=== PATIENT | male | born 1965 | race Caucasian/White ===

== ENCOUNTER 2018-06-18 15:24 | Inpatient (IN) | payer OTHER ==
[2018-06-18] MEDS ORDERED: NACL 0.9% 1000 ML 1,000 ML ONE (15:34)
[2018-06-18] MEDS ORDERED: NACL 0.9% 1000 ML 1,000 ML IV ONE ×2 (15:39)
[2018-06-18] MEDS ORDERED: HumuLIN R IV ONE (15:39)
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
[2018-06-18 16:04] LABS: Basophils % (Auto) 0.3 % (0.0-1.8); Eosinophils % (Auto) 0.1 % (0.0-4.3); Lymphocytes # (Auto) 1.4 K/mm3 (1.2-5.4); Lymphocytes % (Auto) 9.8 % (13.4-35.0); Mean Corpuscular HGB Conc 31 % (32-34); Mean Corpuscular Volume 98 fl (84-94); Monocytes # (Auto) 0.8 K/mm3 (0.0-0.8); Monocytes % (Auto) 5.4 % (0.0-7.3); Platelet Count 133 K/mm3 (140-440); Red Cell Distribution Width 15.5 % (13.2-15.2)
[2018-06-18 16:16] LABS: Hemoglobin 17.4 gm/dl (11.8-15.2)
[2018-06-18 16:18] LABS: Calcium 9.5 mg/dL (8.4-10.2)
[2018-06-18 16:31] LABS: Alanine Aminotransferase 50 units/L (7-56); Albumin 4.8 g/dL (3.9-5)
[2018-06-18 16:34] LABS: Bilirubin,Direct < 0.2 mg/dL (0-0.2)
[2018-06-18] MEDS ORDERED: D50W (25GM) Syringe IV PRN ×2 (16:35→20:55)
[2018-06-18] MEDS ORDERED: HumuLIN R 100 UNITS in NACL 0.9% 99 ML IV SCH (17:00)
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
[2018-06-18 17:30] LABS: Calcium 8.5 mg/dL (8.4-10.2)
[2018-06-18 18:03] LABS: Bilirubin,Urine NEG (Negative); Blood,Urine NEG (Negative); Color,Urine Straw (Yellow); Mucus,Urine FEW /HPF; Protein,Urine <15 mg/dL mg/dL (Negative); Urobilinogen,Urine < 2.0 mg/dL (<2.0)
[2018-06-18] MEDS ORDERED: NACL 0.45% 1000 ML 1,000 ML IV SCH (20:00)
[2018-06-18] MEDS ORDERED: D5W/0.45% NACL/KCL 20 MEQ 20 MEQ/1,000 ML BAG IV SCH (21:00)
[2018-06-18] MEDS ORDERED: KCL 10MEQ/100ML 10 MEQ/100 ML BAG IV PRN (21:00)
[2018-06-18] MEDS ORDERED: LOVENOX SUB-Q SCH (21:00)
--- NOTE | 2018-06-18 21:11 | History and Physical Report ---
History of Present Illness Date of examination: 06/18/18 Date of admission: Diabetic Ketoacidosis Chief complaint: Polyurea, polydypsia and polyphagia with fatigue History of present illness: Patient is a 53 year old gentleman who has a history of hypertension who was seen in my office about 6 weeks ago for atopic dermatitis. Was commenced on prednisone after topical steroids was not effective. Today patient presents with progressive worsening polyuria, polydipsia, polyphagia, weight loss and fatigue. Patient had seen me in the office in about 3 months ago with pressure was 130. He was advised to return for further evaluation. However he did not return because of high insurance deductible. His present symptoms started about 2 weeks ago and progressively got worse. She came into my office today. In the office blood pressure was found to be extremely high inguinal direct in the glucometer. He was fatigued. Denies any fever or chills. No chest pain or shortness of breath or PND. No abdomen pain, nausea or vomiting. Patient was therefore admitted to the emergency department. The patient was found to be 1084. BUN was 58 and creatinine was 2.3. Venous pH was 7.9. Potassium and phosphorus levels where normal. Bicarbonate was normal at 24. Anion gap was unremarkable. Patient was commenced on normal saline and insulin drips. Inp atient admission was requested. Past History Past Medical History: hypertension Social history: smoking, alcohol abuse Family history: diabetes Medications and Allergies Allergies Allergy/AdvReac Type Severity Reaction Status Date / Time No Known Allergies Allergy Verified 06/18/18 15:33 Home Medications Medication Instructions Recorded Confirmed Last Taken Type Atenolol [Tenormin] 50 mg PO DAILY 06/18/18 06/18/18 Unknown History Atorvastatin [Lipitor Tab] 80 mg PO QHS 06/18/18 06/18/18 Unknown History clonazePAM [Clonazepam] 0.5 mg PO BID 06/18/18 06/18/18 Unknown History Active Meds: Active Medications Atenolol (Tenormin) 50 mg PO DAILY [facility] Clonazepam (Klonopin) 0.5 mg PO BID [facility] Dextrose (D50w (25gm) Syringe) 0 ml IV PRN PRN PRN Reason: Hypoglycemia Dextrose (D50w (25gm) Syringe) 0 ml IV PRN PRN PRN Reason: Hypoglycemia Enoxaparin Sodium (Lovenox) 30 mg SUB-Q QDAY [facility] Insulin Human Regular 100 (units/ Sodium Chloride) 100 mls @ 1 mls/hr IV TITR [facility]; Protocol Last Titration: 06/18/18 20:56 Dose: 7 units/hr, 7 mls/hr Documented by: Sodium Chloride (Nacl 0.45% 1000 Ml) 1,000 mls @ 150 mls/hr IV DIRECT [facility] Last Admin: 06/18/18 19:57 Dose: 150 mls/hr Documented by: Potassium Chloride/Dextrose/Sod Cl (D5w/0.45% Nacl/Kcl 20 Meq) 20 meq in 1,000 mls @ 125 mls/hr IV DIRECT [facility] Potassium Chloride (Kcl 10meq/100ml) 10 meq in 100 mls @ 100 mls/hr IV Q1H [facility] Stop: 06/19/18 00:59 Insulin Human Regular 100 (units/ Sodium Chloride) 100 mls @ 1 mls/hr IV TITR [facility]; Protocol Miscellaneous Medication (Atorvastatin [Lipitor]) 80 mg PO QHS [facility] Review of systems Constitutional: Well Nourished and Well developed. Fatigued Head: NC/ AT Eyes: Denies any visual impairments. No discharge from the eyes Nose: Denies any rhinorrhea or epistaxis Throats: Denies any post nasal drainage. Ears: Denies any hearing deficits Cardiovascular system: Denies any chest pain, shortness of breath, orthopnea, paroxysmal nocturnal dyspnea, or palpitation. Respiratory system: Denies any cough, difficulty breathing, wheezing, pleuritic chest pain, Gastrointestinal system: Denies any abdominal pain, nausea vomiting, hematemesis or melena. Neurological system: Denies any headache, slurred speech, facial droop, lateralizing weakness Genitalia system: Denies any dysuria, urinary frequency or urgency, urethral discharge Skin: No rashes, hyperpigmented spots. Hematological: Denies any cervical tenderness hemorrhages or petechia. Immunological: Denies any multiple septic spots, Lymphatic: Denies any generalized lymphadenopathy. Endocrine: Denies any polyuria, polydipsia, polyphagia. No heat or cold intolerance. Musculoskeletal system: No joint pain or swelling. Psych: No visual, tactile, auditory or hallucination Exam - Physical Exam Narrative exam: Constitutional: Well-nourished well-developed. In no distress Head: Normocephalic atraumatic Eyes: Pupils are equal round and reactive to light Nose: No enlarged turbinates, no septal deviation. Mouth: Dry mucous membranes. Neck: Supple no thyromegaly. No bruit. No JVD Heart: Regular rate and rhythm, S1-S2 normal. No rubs murmurs or gallop Lungs: Clear to auscultation bilaterally. no rales or rhonchi Abdomen: Soft, nontender. Bowel sound are present. Extremities: No edema, no cyanosis, no clubbing. Neuro: Alert oriented Oriented x3. No focal sensory or motor deficit. Skin: No rashes or hyperpigmented spots Musculoskeletal system: No joint pain or swelling Hematological: No petechia or subcutanous hemorrhages. Immunological: No multiple septic spots on the skin Lymphatic: No generalized lymphadenopathy Psychiatry: Euthymic. Calm. - Constitutional Vitals: Temp Pulse Resp BP Pulse Ox 98.1 F 76 12 105/76 98 06/18/18 19:00 06/18/18 20:00 06/18/18 20:00 06/18/18 20:00 06/18/18 19:00 Results - Labs CBC & Chem 7: 06/18/18 15:40 06/18/18 18:57 Labs: Abnormal lab results 06/18/18 06/18/18 06/18/18 Range/Units 15:30 15:40 15:40 WBC 14.0 H (4.5-11.0) K/mm3 RBC 5.80 H (3.65-5.03) M/mm3 Hgb 17.4 H (11.8-15.2) gm/dl Hct 57.0 H (35.5-45.6) % MCV 98 H (84-94) fl MCHC 31 L (32-34) % RDW 15.5 H (13.2-15.2) % Plt Count 133 L (140-440) K/mm3 Lymph % (Auto) 9.8 L (13.4-35.0) % Seg Neutrophils % 84.4 H (40.0-70.0) % Seg Neutrophils # 11.8 H (1.8-7.7) K/mm3 VBG pH (7.320-7.420) Sodium 153 H (137-145) mmol/L Potassium 5.1 H (3.6-5.0) mmol/L Chloride (98-107) mmol/L BUN 58 H (9-20) mg/dL Creatinine 2.3 H (0.8-1.5) mg/dL Glucose 1083 H* (75-100) mg/dL POC Glucose > 500 H (70-105) Magnesium (1.7-2.3) mg/dL Alkaline Phosphatase (35-129) units/L 06/18/18 06/18/18 06/18/18 Range/Units 15:40 15:44 16:59 WBC (4.5-11.0) K/mm3 RBC (3.65-5.03) M/mm3 Hgb (11.8-15.2) gm/dl Hct (35.5-45.6) % MCV (84-94) fl MCHC (32-34) % RDW (13.2-15.2) % Plt Count (140-440) K/mm3 Lymph % (Auto) (13.4-35.0) % Seg Neutrophils % (40.0-70.0) % Seg Neutrophils # (1.8-7.7) K/mm3 VBG pH 7.293 L (7.320-7.420) Sodium (137-145) mmol/L Potassium (3.6-5.0) mmol/L Chloride (98-107) mmol/L BUN (9-20) mg/dL Creatinine (0.8-1.5) mg/dL Glucose (75-100) mg/dL POC Glucose (70-105) Magnesium 3.30 H (1.7-2.3) mg/dL Alkaline Phosphatase 143 H (35-129) units/L 06/18/18 06/18/18 06/18/18 Range/Units 16:59 18:54 18:57 WBC (4.5-11.0) K/mm3 RBC (3.65-5.03) M/mm3 Hgb (11.8-15.2) gm/dl Hct (35.5-45.6) % MCV (84-94) fl MCHC (32-34) % RDW (13.2-15.2) % Plt Count (140-440) K/mm3 Lymph % (Auto) (13.4-35.0) % Seg Neutrophils % (40.0-70.0) % Seg Neutrophils # (1.8-7.7) K/mm3 VBG pH (7.320-7.420) Sodium 158 H 163 H* (137-145) mmol/L Potassium (3.6-5.0) mmol/L Chloride 116.2 H 122.4 H (98-107) mmol/L BUN 55 H 51 H (9-20) mg/dL Creatinine 2.4 H 1.9 H (0.8-1.5) mg/dL Glucose 897 H* 687 H* (75-100) mg/dL POC Glucose 437 H (70-105) Magnesium (1.7-2.3) mg/dL Alkaline Phosphatase (35-129) units/L 06/18/18 06/18/18 Range/Units 20:06 20:58 WBC (4.5-11.0) K/mm3 RBC (3.65-5.03) M/mm3 Hgb (11.8-15.2) gm/dl Hct (35.5-45.6) % MCV (84-94) fl MCHC (32-34) % RDW (13.2-15.2) % Plt Count (140-440) K/mm3 Lymph % (Auto) (13.4-35.0) % Seg Neutrophils % (40.0-70.0) % Seg Neutrophils # (1.8-7.7) K/mm3 VBG pH (7.320-7.420) Sodium (137-145) mmol/L Potassium (3.6-5.0) mmol/L Chloride (98-107) mmol/L BUN (9-20) mg/dL Creatinine (0.8-1.5) mg/dL Glucose (75-100) mg/dL POC Glucose 412 H 384 H (70-105) Magnesium (1.7-2.3) mg/dL Alkaline Phosphatase (35-129) units/L Assessment and Plan Patient is a 53 year old gentleman who has a history of hypertension who was seen in my office about 6 weeks ago for atopic dermatitis. Was commenced on prednisone after topical steroids was ineffective. Today patient presents with progressive worsening polyuria, polydipsia, polyphagia, weight loss and fatigue. Patient had seen me in the office in about 3 months ago with pressure was 130. Had no prior history of diabetes. He was advised to return for further evaluation. However he did not return because of high insurance deductible. His present symptoms started about 2 weeks ago and progressively got worse. She came into my office today. In the office blood pressure was found to be extremely high inguinal direct in the glucometer. He was fatigued. Denies any fever or chills. No chest pain or shortness of breath or PND. No abdomen pain, nausea or vomiting. Patient was therefore admitted to the emergency department. The patient was found to be 1084. BUN was 58 and creatinine was 2.3. Venous pH was 7.9. Potassium and phosphorus levels where normal. Bicarbonate was normal at 24. Anion gap was unremarkable. Patient was commenced on normal saline and insulin drips. Inpatient admission was requested. - Diabetic ketoacidosis Patient had received 2 L of bolus of normal saline. We'll continue with the muscle and at 150/m. Insulin drip, serial BMP, magnesium and phosphorus. Correct any electrolyte imbalalnces accordingly Obtain urine microalbumin, lipid panel, A1c. Diabetic education - New onset diabetes mellitus with diabetic ketoacidosis Continue treatment as above Diabetic education A1c - Acute renal failure from prerenal azotemia Anticipates correction to normal with IV hydration with normal saline We'll obtain renal ultrasound if anticipated improvement is not Observed within 24 hrs -DVT prophylaxis with Lovenox and GI with Pepcid - CCT 40 min
[2018-06-18] MEDS ORDERED: LOVENOX SUB-Q ONE (21:50)
[2018-06-18 22:09] LABS: Calcium 9.3 mg/dL (8.4-10.2)
[2018-06-18] MEDS: TENORMIN PO SCH (22:20)
[2018-06-18] MEDS: PEPCID IV SCH (22:50)
[2018-06-18] MEDS: HumuLIN R 100 UNITS in NACL 0.9% 99 ML IV SCH (22:50)
[2018-06-18] MEDS: NACL 0.45% 1000 ML 1,000 ML IV SCH (22:57)
[2018-06-19 00:19] LABS: Chol/HDL Ratio 5.51 %; HDL Cholesterol 43 mg/dL (40-59); LDL Cholesterol,Direct TNR mg/dL (50-130)
[2018-06-19 00:57] LABS: Calcium 9.1 mg/dL (8.4-10.2)
[2018-06-19 02:05] LABS: Calcium 9.4 mg/dL (8.4-10.2)
[2018-06-19 05:01] LABS: Basophils # (Auto) 0.1 K/mm3 (0.0-0.1); Basophils % (Auto) 0.6 % (0.0-1.8); Eosinophils # (Auto) 0.1 K/mm3 (0.0-0.4); Eosinophils % (Auto) 1.1 % (0.0-4.3); Hematocrit 47.4 % (35.5-45.6); Hemoglobin 15.3 gm/dl (11.8-15.2); Lymphocytes # (Auto) 2.4 K/mm3 (1.2-5.4); Lymphocytes % (Auto) 18.5 % (13.4-35.0); Mean Corpuscular HGB Conc 32 % (32-34); Mean Corpuscular Volume 93 fl (84-94); Monocytes # (Auto) 0.9 K/mm3 (0.0-0.8); Monocytes % (Auto) 7.2 % (0.0-7.3); Red Blood Count 5.12 M/mm3 (3.65-5.03); Red Cell Distribution Width 13.9 % (13.2-15.2)
[2018-06-19 05:23] LABS: Platelet Count 91 K/mm3 (140-440)
[2018-06-19] MEDS: NACL 0.45% 1000 ML 1,000 ML IV SCH (05:36)
[2018-06-19 08:07] LABS: Blood Urea Nitrogen TNR mg/dL (9-20)
[2018-06-19 08:08] LABS: Alanine Aminotransferase TNR units/L (7-56); BUN/Creatinine Ratio TNR; Calcium TNR mg/dL (8.4-10.2)
[2018-06-19 08:09] LABS: Albumin TNR g/dL (3.9-5); Hemolysis Index TNR
[2018-06-19] MEDS: HumuLIN R 100 UNITS in NACL 0.9% 99 ML IV SCH (09:00)
[2018-06-19 09:11] LABS: Albumin 3.6 g/dL (3.9-5); Calcium 8.8 mg/dL (8.4-10.2)
[2018-06-19] MEDS: LOVENOX SUB-Q SCH (09:36)
[2018-06-19] MEDS: PEPCID IV SCH (09:36)
--- NOTE | 2018-06-19 10:05 | Progress Note ---
Assessment and Plan Patient is a 53 year old gentleman who has a history of hypertension who was seen in my office about 6 weeks ago for atopic dermatitis. Was commenced on prednisone after topical steroids was ineffective. Today patient presents with progressive worsening polyuria, polydipsia, polyphagia, weight loss and fatigue. Patient had seen me in the office in about 3 months ago with pressure was 130. Had no prior history of diabetes. He was advised to return for further evaluation. However he did not return because of high insurance deductible. His present symptoms started about 2 weeks ago and progressively got worse. She came into my office today. In the office blood pressure was found to be extremely high inguinal direct in the glucometer. He was fatigued. Denies any fever or chills. No chest pain or shortness of breath or PND. No abdomen pain, nausea or vomiting. Patient was therefore admitted to the emergency department. The patient was found to be 1084. BUN was 58 and creatinine was 2.3. Venous pH was 7.9. Potassium and phosphorus levels where normal. Bicarbonate was normal at 24. Anion gap was unremarkable. Patient was commenced on normal saline and insulin drips. Inpatient admission was requested. Had hypernatremia that is worsening to 166. commence pt on D5W as blood sugar level have improve to the 120s. - Diabetic ketoacidosis - resolving normal anion gap, and Co2 level Had an episode of hypoglycemia last nigh stil had persistent hypernatrmia commence pt on D5 W and continue with inuslin drip now at less than 2 units - New onset diabetes mellitus with diabetic ketoacidosis Continue treatment as above Diabetic education A1c 22.4 - Hypernatremia - worsening D/c NS. commnece pt on D5W as he had an episode of symptomatic Hypoglycemia last night Encourage liberal oral fluid intake - Acute renal failure from prerenal azotemia - greatly improved Anticipates furhter improvemtn with iv hydration -DVT prophylaxis with Lovenox and GI with Pepcid - CCT 35 min Subjective Date of service: 06/19/18 Principal diagnosis: DKA, new onset T2DM, LO, hypernatremia Interval history: Pt seen and examined. No overnight event reported to me by pt's nurse except for increasing Na level ans an episode of asymptomatic hypoglycemia. Pt is Feeling better. Objective - Exam Narrative Exam: Constitutional: Well-nourished well-developed. In no distress Head: Normocephalic atraumatic Eyes: Pupils are equal round and reactive to light Nose: No enlarged turbinates, no septal deviation. Mouth: Dry mucous membranes. Neck: Supple no thyromegaly. No bruit. No JVD Heart: Regular rate and rhythm, S1-S2 normal. No rubs murmurs or gallop Lungs: Clear to auscultation bilaterally. no rales or rhonchi Abdomen: Soft, nontender. Bowel sound are present. Extremities: No edema, no cyanosis, no clubbing. Neuro: Alert oriented Oriented x3. No focal sensory or motor deficit. Skin: rashes on the skin and left hand. no hyperpigmented spots Musculoskeletal system: No joint pain or swelling Hematological: No petechia or subcutanous hemorrhages. Immunological: No multiple septic spots on the skin Lymphatic: No generalized lymphadenopathy Psychiatry: Euthymic. Calm. - Constitutional Vitals: Vital Signs - 12hr 06/18/18 06/18/18 06/18/18 22:04 22:20 22:25 Temperature 97.9 F Pulse Rate 75 77 Pulse Rate [ 73 Left Radial] Respiratory 14 Rate Respiratory Rate [ Generalized] Blood Pressure O2 Sat by Pulse 97 95 Oximetry 06/18/18 06/18/18 06/18/18 22:30 22:40 22:50 Temperature Pulse Rate 82 78 78 Pulse Rate [ Left Radial] Respiratory 9 L 13 10 L Rate Respiratory Rate [ Generalized] Blood Pressure O2 Sat by Pulse 98 97 95 Oximetry 06/18/18 06/18/18 06/18/18 23:00 23:10 23:20 Temperature Pulse Rate 84 74 74 Pulse Rate [ Left Radial] Respiratory 12 10 L 11 L Rate Respiratory Rate [ Generalized] Blood Pressure 123/81 123/81 O2 Sat by Pulse 97 96 96 Oximetry 06/18/18 06/18/18 06/18/18 23:23 23:30 23:40 Temperature 98.8 F Pulse Rate 79 76 Pulse Rate [ Left Radial] Respiratory 9 L 13 Rate Respiratory Rate [ Generalized] Blood Pressure 123/81 123/81 O2 Sat by Pulse 96 96 Oximetry 06/18/18 06/19/18 06/19/18 23:50 00:00 00:07 Temperature Pulse Rate 79 77 80 Pulse Rate [ 73 Left Radial] Respiratory 13 16 Rate Respiratory Rate [ Generalized] Blood Pressure 123/81 123/81 O2 Sat by Pulse 95 97 95 Oximetry 06/19/18 06/19/18 06/19/18 00:10 00:20 00:30 Temperature Pulse Rate 82 85 82 Pulse Rate [ Left Radial] Respiratory 11 L 11 L 13 Rate Respiratory Rate [ Generalized] Blood Pressure 123/81 123/81 123/81 O2 Sat by Pulse 95 97 97 Oximetry 06/19/18 06/19/18 06/19/18 00:40 00:50 01:00 Temperature Pulse Rate 84 81 78 Pulse Rate [ Left Radial] Respiratory 14 10 L 9 L Rate Respiratory Rate [ Generalized] Blood Pressure 133/74 133/74 102/70 O2 Sat by Pulse 97 97 97 Oximetry 06/19/18 06/19/18 06/19/18 01:10 01:20 01:30 Temperature Pulse Rate 80 76 74 Pulse Rate [ Left Radial] Respiratory 10 L 14 9 L Rate Respiratory Rate [ Generalized] Blood Pressure 102/70 102/70 102/70 O2 Sat by Pulse 99 95 96 Oximetry 06/19/18 06/19/18 06/19/18 01:40 01:50 02:00 Temperature Pulse Rate 75 74 70 Pulse Rate [ Left Radial] Respiratory 11 L 9 L 9 L Rate Respiratory Rate [ Generalized] Blood Pressure 102/70 102/70 114/76 O2 Sat by Pulse 96 96 97 Oximetry 06/19/18 06/19/18 06/19/18 02:10 02:15 02:20 Temperature Pulse Rate 73 73 73 Pulse Rate [ 73 Left Radial] Respiratory 10 L 9 L Rate Respiratory 16 Rate [ Generalized] Blood Pressure 114/76 114/76 O2 Sat by Pulse 97 95 96 Oximetry 06/19/18 06/19/18 06/19/18 02:30 02:40 02:50 Temperature Pulse Rate 73 71 73 Pulse Rate [ Left Radial] Respiratory 10 L 10 L 11 L Rate Respiratory Rate [ Generalized] Blood Pressure 114/76 114/76 114/76 O2 Sat by Pulse 96 96 96 Oximetry 06/19/18 06/19/18 06/19/18 03:00 03:10 03:20 Temperature Pulse Rate 71 76 84 Pulse Rate [ Left Radial] Respiratory 10 L 8 L 11 L Rate Respiratory Rate [ Generalized] Blood Pressure 101/73 101/73 101/73 O2 Sat by Pulse 97 98 95 Oximetry 06/19/18 06/19/18 06/19/18 03:30 03:36 03:43 Temperature 98.9 F Pulse Rate 84 81 Pulse Rate [ Left Radial] Respiratory 11 L 11 L Rate Respiratory Rate [ Generalized] Blood Pressure 101/73 O2 Sat by Pulse 97 96 Oximetry 06/19/18 06/19/18 06/19/18 03:50 03:53 04:00 Temperature Pulse Rate 82 80 Pulse Rate [ 73 Left Radial] Respiratory 12 13 Rate Respiratory Rate [ Generalized] Blood Pressure 107/69 O2 Sat by Pulse 96 95 96 Oximetry 06/19/18 06/19/18 06/19/18 04:10 04:20 04:30 Temperature Pulse Rate 80 79 75 Pulse Rate [ Left Radial] Respiratory 12 8 L 10 L Rate Respiratory Rate [ Generalized] Blood Pressure 107/69 107/69 107/69 O2 Sat by Pulse 96 97 96 Oximetry 06/19/18 06/19/18 06/19/18 04:40 04:50 05:00 Temperature Pulse Rate 75 75 70 Pulse Rate [ Left Radial] Respiratory 11 L 11 L 11 L Rate Respiratory Rate [ Generalized] Blood Pressure 107/69 107/69 110/72 O2 Sat by Pulse 96 96 97 Oximetry 06/19/18 06/19/18 06/19/18 05:10 05:20 05:30 Temperature Pulse Rate 74 74 76 Pulse Rate [ Left Radial] Respiratory 11 L 10 L 11 L Rate Respiratory Rate [ Generalized] Blood Pressure 110/72 110/72 110/72 O2 Sat by Pulse 97 97 98 Oximetry 06/19/18 06/19/18 06/19/18 05:40 05:44 05:50 Temperature Pulse Rate 78 71 Pulse Rate [ 73 Left Radial] Respiratory 12 10 L Rate Respiratory Rate [ Generalized] Blood Pressure 110/72 110/72 O2 Sat by Pulse 98 96 Oximetry 06/19/18 06/19/18 06/19/18 06:00 06:10 06:20 Temperature Pulse Rate 74 70 70 Pulse Rate [ Left Radial] Respiratory 10 L 10 L 11 L Rate Respiratory Rate [ Generalized] Blood Pressure 117/73 110/72 110/72 O2 Sat by Pulse 98 97 97 Oximetry 06/19/18 08:00 Temperature 98.2 F Pulse Rate Pulse Rate [ Left Radial] Respiratory Rate Respiratory Rate [ Generalized] Blood Pressure O2 Sat by Pulse Oximetry - Labs CBC & Chem 7: 06/19/18 04:32 06/19/18 08:26 Labs: Abnormal lab results 06/18/18 06/18/18 06/18/18 Range/Units 15:20 15:30 15:40 WBC 14.0 H (4.5-11.0) K/mm3 RBC 5.80 H (3.65-5.03) M/mm3 Hgb 17.4 H (11.8-15.2) gm/dl Hct 57.0 H (35.5-45.6) % MCV 98 H (84-94) fl MCHC 31 L (32-34) % RDW 15.5 H (13.2-15.2) % Plt Count 133 L (140-440) K/mm3 Lymph % (Auto) 9.8 L (13.4-35.0) % [place] # (0.0-0.8) K/mm3 Seg Neutrophils % 84.4 H (40.0-70.0) % Seg Neutrophils # 11.8 H (1.8-7.7) K/mm3 VBG pH (7.320-7.420) Sodium (137-145) mmol/L Potassium (3.6-5.0) mmol/L Chloride (98-107) mmol/L BUN (9-20) mg/dL Creatinine (0.8-1.5) mg/dL Glucose (75-100) mg/dL POC Glucose > 500 H (70-105) Hemoglobin A1c 22.4 H (4-6) % Magnesium (1.7-2.3) mg/dL Alkaline Phosphatase (35-129) units/L Total Protein (6.3-8.2) g/dL Albumin (3.9-5) g/dL Triglycerides (2-149) mg/dL Cholesterol (50-199) mg/dL 06/18/18 06/18/18 06/18/18 Range/Units 15:40 15:40 15:44 WBC (4.5-11.0) K/mm3 RBC (3.65-5.03) M/mm3 Hgb (11.8-15.2) gm/dl Hct (35.5-45.6) % MCV (84-94) fl MCHC (32-34) % RDW (13.2-15.2) % Plt Count (140-440) K/mm3 Lymph % (Auto) (13.4-35.0) % [place] # (0.0-0.8) K/mm3 Seg Neutrophils % (40.0-70.0) % Seg Neutrophils # (1.8-7.7) K/mm3 VBG pH 7.293 L (7.320-7.420) Sodium 153 H (137-145) mmol/L Potassium 5.1 H (3.6-5.0) mmol/L Chloride (98-107) mmol/L BUN 58 H (9-20) mg/dL Creatinine 2.3 H (0.8-1.5) mg/dL Glucose 1083 H* (75-100) mg/dL POC Glucose (70-105) Hemoglobin A1c (4-6) % Magnesium (1.7-2.3) mg/dL Alkaline Phosphatase 143 H (35-129) units/L Total Protein (6.3-8.2) g/dL Albumin (3.9-5) g/dL Triglycerides (2-149) mg/dL Cholesterol (50-199) mg/dL 06/18/18 06/18/18 06/18/18 Range/Units 16:59 16:59 18:54 WBC (4.5-11.0) K/mm3 RBC (3.65-5.03) M/mm3 Hgb (11.8-15.2) gm/dl Hct (35.5-45.6) % MCV (84-94) fl MCHC (32-34) % RDW (13.2-15.2) % Plt Count (140-440) K/mm3 Lymph % (Auto) (13.4-35.0) % [place] # (0.0-0.8) K/mm3 Seg Neutrophils % (40.0-70.0) % Seg Neutrophils # (1.8-7.7) K/mm3 VBG pH (7.320-7.420) Sodium 158 H (137-145) mmol/L Potassium (3.6-5.0) mmol/L Chloride 116.2 H (98-107) mmol/L BUN 55 H (9-20) mg/dL Creatinine 2.4 H (0.8-1.5) mg/dL Glucose 897 H* (75-100) mg/dL POC Glucose 437 H (70-105) Hemoglobin A1c (4-6) % Magnesium 3.30 H (1.7-2.3) mg/dL Alkaline Phosphatase (35-129) units/L Total Protein (6.3-8.2) g/dL Albumin (3.9-5) g/dL Triglycerides (2-149) mg/dL Cholesterol (50-199) mg/dL 06/18/18 06/18/18 06/18/18 Range/Units 18:57 20:06 20:58 WBC (4.5-11.0) K/mm3 RBC (3.65-5.03) M/mm3 Hgb (11.8-15.2) gm/dl Hct (35.5-45.6) % MCV (84-94) fl MCHC (32-34) % RDW (13.2-15.2) % Plt Count (140-440) K/mm3 Lymph % (Auto) (13.4-35.0) % [place] # (0.0-0.8) K/mm3 Seg Neutrophils % (40.0-70.0) % Seg Neutrophils # (1.8-7.7) K/mm3 VBG pH (7.320-7.420) Sodium 163 H* (137-145) mmol/L Potassium (3.6-5.0) mmol/L Chloride 122.4 H (98-107) mmol/L BUN 51 H (9-20) mg/dL Creatinine 1.9 H (0.8-1.5) mg/dL Glucose 687 H* (75-100) mg/dL POC Glucose 412 H 384 H (70-105) Hemoglobin A1c (4-6) % Magnesium (1.7-2.3) mg/dL Alkaline Phosphatase (35-129) units/L Total Protein (6.3-8.2) g/dL Albumin (3.9-5) g/dL Triglycerides (2-149) mg/dL Cholesterol (50-199) mg/dL 06/18/18 06/18/18 06/18/18 Range/Units 21:17 21:17 21:17 WBC (4.5-11.0) K/mm3 RBC (3.65-5.03) M/mm3 Hgb (11.8-15.2) gm/dl Hct (35.5-45.6) % MCV (84-94) fl MCHC (32-34) % RDW (13.2-15.2) % Plt Count (140-440) K/mm3 Lymph % (Auto) (13.4-35.0) % [place] # (0.0-0.8) K/mm3 Seg Neutrophils % (40.0-70.0) % Seg Neutrophils # (1.8-7.7) K/mm3 VBG pH (7.320-7.420) Sodium 166 H* (137-145) mmol/L Potassium (3.6-5.0) mmol/L Chloride 124.2 H (98-107) mmol/L BUN 48 H (9-20) mg/dL Creatinine 1.6 H (0.8-1.5) mg/dL Glucose 455 H (75-100) mg/dL POC Glucose (70-105) Hemoglobin A1c (4-6) % Magnesium 3.50 H (1.7-2.3) mg/dL Alkaline Phosphatase (35-129) units/L Total Protein (6.3-8.2) g/dL Albumin (3.9-5) g/dL Triglycerides 508 H (2-149) mg/dL Cholesterol 237 H (50-199) mg/dL 06/18/18 06/18/18 06/18/18 Range/Units 22:17 22:41 23:58 WBC (4.5-11.0) K/mm3 RBC (3.65-5.03) M/mm3 Hgb (11.8-15.2) gm/dl Hct (35.5-45.6) % MCV (84-94) fl MCHC (32-34) % RDW (13.2-15.2) % Plt Count (140-440) K/mm3 Lymph % (Auto) (13.4-35.0) % [place] # (0.0-0.8) K/mm3 Seg Neutrophils % (40.0-70.0) % Seg Neutrophils # (1.8-7.7) K/mm3 VBG pH (7.320-7.420) Sodium 166 H* (137-145) mmol/L Potassium (3.6-5.0) mmol/L Chloride 128.5 H (98-107) mmol/L BUN 47 H (9-20) mg/dL Creatinine 1.7 H (0.8-1.5) mg/dL Glucose 369 H (75-100) mg/dL POC Glucose 347 H 274 H (70-105) Hemoglobin A1c (4-6) % Magnesium (1.7-2.3) mg/dL Alkaline Phosphatase (35-129) units/L Total Protein (6.3-8.2) g/dL Albumin (3.9-5) g/dL Triglycerides (2-149) mg/dL Cholesterol (50-199) mg/dL 06/19/18 06/19/18 06/19/18 Range/Units 00:25 01:08 02:20 WBC (4.5-11.0) K/mm3 RBC (3.65-5.03) M/mm3 Hgb (11.8-15.2) gm/dl Hct (35.5-45.6) % MCV (84-94) fl MCHC (32-34) % RDW (13.2-15.2) % Plt Count (140-440) K/mm3 Lymph % (Auto) (13.4-35.0) % [place] # (0.0-0.8) K/mm3 Seg Neutrophils % (40.0-70.0) % Seg Neutrophils # (1.8-7.7) K/mm3 VBG pH (7.320-7.420) Sodium 168 H* (137-145) mmol/L Potassium (3.6-5.0) mmol/L Chloride 127.4 H (98-107) mmol/L BUN 46 H (9-20) mg/dL Creatinine (0.8-1.5) mg/dL Glucose 272 H (75-100) mg/dL POC Glucose 284 H 119 H (70-105) Hemoglobin A1c (4-6) % Magnesium (1.7-2.3) mg/dL Alkaline Phosphatase (35-129) units/L Total Protein (6.3-8.2) g/dL Albumin (3.9-5) g/dL Triglycerides (2-149) mg/dL Cholesterol (50-199) mg/dL 06/19/18 06/19/18 06/19/18 Range/Units 03:08 04:10 04:32 WBC 13.2 H (4.5-11.0) K/mm3 RBC 5.12 H (3.65-5.03) M/mm3 Hgb 15.3 H (11.8-15.2) gm/dl Hct 47.4 H D (35.5-45.6) % MCV (84-94) fl MCHC (32-34) % RDW (13.2-15.2) % Plt Count 91 L (140-440) K/mm3 Lymph % (Auto) (13.4-35.0) % [place] # 0.9 H (0.0-0.8) K/mm3 Seg Neutrophils % 72.6 H (40.0-70.0) % Seg Neutrophils # 9.5 H (1.8-7.7) K/mm3 VBG pH (7.320-7.420) Sodium (137-145) mmol/L Potassium (3.6-5.0) mmol/L Chloride (98-107) mmol/L BUN (9-20) mg/dL Creatinine (0.8-1.5) mg/dL Glucose (75-100) mg/dL POC Glucose 164 H 48 L (70-105) Hemoglobin A1c (4-6) % Magnesium (1.7-2.3) mg/dL Alkaline Phosphatase (35-129) units/L Total Protein (6.3-8.2) g/dL Albumin (3.9-5) g/dL Triglycerides (2-149) mg/dL Cholesterol (50-199) mg/dL 06/19/18 06/19/18 06/19/18 Range/Units 04:32 05:17 06:17 WBC (4.5-11.0) K/mm3 RBC (3.65-5.03) M/mm3 Hgb (11.8-15.2) gm/dl Hct (35.5-45.6) % MCV (84-94) fl MCHC (32-34) % RDW (13.2-15.2) % Plt Count (140-440) K/mm3 Lymph % (Auto) (13.4-35.0) % [place] # (0.0-0.8) K/mm3 Seg Neutrophils % (40.0-70.0) % Seg Neutrophils # (1.8-7.7) K/mm3 VBG pH (7.320-7.420) Sodium (137-145) mmol/L Potassium (3.6-5.0) mmol/L Chloride (98-107) mmol/L BUN (9-20) mg/dL Creatinine (0.8-1.5) mg/dL Glucose (75-100) mg/dL POC Glucose 200 H 256 H 170 H (70-105) Hemoglobin A1c (4-6) % Magnesium (1.7-2.3) mg/dL Alkaline Phosphatase (35-129) units/L Total Protein (6.3-8.2) g/dL Albumin (3.9-5) g/dL Triglycerides (2-149) mg/dL Cholesterol (50-199) mg/dL 06/19/18 06/19/18 06/19/18 Range/Units 06:45 08:08 08:26 WBC (4.5-11.0) K/mm3 RBC (3.65-5.03) M/mm3 Hgb (11.8-15.2) gm/dl Hct (35.5-45.6) % MCV (84-94) fl MCHC (32-34) % RDW (13.2-15.2) % Plt Count (140-440) K/mm3 Lymph % (Auto) (13.4-35.0) % [place] # (0.0-0.8) K/mm3 Seg Neutrophils % (40.0-70.0) % Seg Neutrophils # (1.8-7.7) K/mm3 VBG pH (7.320-7.420) Sodium 164 H* (137-145) mmol/L Potassium (3.6-5.0) mmol/L Chloride 128.9 H (98-107) mmol/L BUN 41 H (9-20) mg/dL Creatinine (0.8-1.5) mg/dL Glucose 126 H (75-100) mg/dL POC Glucose 144 H 119 H (70-105) Hemoglobin A1c (4-6) % Magnesium (1.7-2.3) mg/dL Alkaline Phosphatase (35-129) units/L Total Protein 6.1 L (6.3-8.2) g/dL Albumin 3.6 L (3.9-5) g/dL Triglycerides (2-149) mg/dL Cholesterol (50-199) mg/dL 06/19/18 Range/Units 08:56 WBC (4.5-11.0) K/mm3 RBC (3.65-5.03) M/mm3 Hgb (11.8-15.2) gm/dl Hct (35.5-45.6) % MCV (84-94) fl MCHC (32-34) % RDW (13.2-15.2) % Plt Count (140-440) K/mm3 Lymph % (Auto) (13.4-35.0) % [place] # (0.0-0.8) K/mm3 Seg Neutrophils % (40.0-70.0) % Seg Neutrophils # (1.8-7.7) K/mm3 VBG pH (7.320-7.420) Sodium (137-145) mmol/L Potassium (3.6-5.0) mmol/L Chloride (98-107) mmol/L BUN (9-20) mg/dL Creatinine (0.8-1.5) mg/dL Glucose (75-100) mg/dL POC Glucose 121 H (70-105) Hemoglobin A1c (4-6) % Magnesium (1.7-2.3) mg/dL Alkaline Phosphatase (35-129) units/L Total Protein (6.3-8.2) g/dL Albumin (3.9-5) g/dL Triglycerides (2-149) mg/dL Cholesterol (50-199) mg/dL
[2018-06-19] MEDS: TENORMIN PO SCH (11:26)
[2018-06-19] MEDS: KCL 20 MEQ in D5W 1,000 ML IV SCH ×2 (11:30→20:10)
--- NOTE | 2018-06-19 11:55 | Consultation ---
History of Present Illness - Reason for Consult Consult date: 06/19/18 Hyperglycemia, electrolyte imbalance Requesting physician: JOSE MANUEL QUAN - History of Present Illness 53 y/o male admitted as a DKA secondary to elevated blood sugar. Also found to have severe electrolyte abnormalites apparently stemming from dehydration. This am awake and alert. Na is still elevated. Anion Gap has closed and sugars are less than 250. No family present at bedside. Past History Past Medical History: diabetes, hypertension Social history: smoking, alcohol abuse Family history: diabetes Medications and Allergies Allergies Allergy/AdvReac Type Severity Reaction Status Date / Time No Known Allergies Allergy Verified 06/18/18 15:33 Home Medications Medication Instructions Recorded Confirmed Last Taken Type Atenolol [Tenormin] 50 mg PO DAILY 06/18/18 06/18/18 Unknown History Atorvastatin [Lipitor Tab] 80 mg PO QHS 06/18/18 06/18/18 Unknown History clonazePAM [Clonazepam] 0.5 mg PO BID 06/18/18 06/18/18 Unknown History Active Meds: Active Medications Atenolol (Tenormin) 50 mg PO DAILY [facility] Last Admin: 06/19/18 11:26 Dose: 50 mg Documented by: Atorvastatin Calcium (Lipitor) 80 mg PO QHS [facility] Last Admin: 06/18/18 22:50 Dose: 80 mg Documented by: Clonazepam (Klonopin) 0.5 mg PO BID [facility] Last Admin: 06/19/18 09:36 Dose: 0.5 mg Documented by: Dextrose (D50w (25gm) Syringe) 0 ml IV PRN PRN PRN Reason: Hypoglycemia Last Admin: 06/19/18 04:18 Dose: 50 ml Documented by: Enoxaparin Sodium (Lovenox) 40 mg SUB-Q QDAY@1000 [facility] Last Admin: 06/19/18 09:36 Dose: 40 mg Documented by: Famotidine (Pepcid) 20 mg PO DAILY [facility] Potassium Chloride (Kcl 10meq/100ml) 10 meq in 100 mls @ 100 mls/hr IV Q1H PRN PRN Reason: FOR K 3-3.3 Insulin Human Regular 100 (units/ Sodium Chloride) 100 mls @ 1 mls/hr IV TITR [facility]; Protocol Stop: 06/19/18 15:00 Last Titration: 06/19/18 11:00 Dose: 5 units/hr, 5 mls/hr Documented by: Potassium Chloride 20 meq/ (Dextrose) 1,010 mls @ 125 mls/hr IV DIRECT [facility] Last Admin: 06/19/18 11:30 Dose: 125 mls/hr Documented by: Insulin Glargine (Lantus) 20 units SUB-Q DAILY [facility] Insulin Human Lispro (Humalog) 0 unit SUB-Q Q4HR [facility]; Protocol Review of Systems All systems: negative Exam - Constitutional Vitals: Temp Pulse Resp BP Pulse Ox 98.2 F 70 10 L 105/72 99 06/19/18 08:00 06/19/18 11:26 06/19/18 10:50 06/19/18 11:26 06/19/18 10:50 General appearance: Present: no acute distress, well-nourished - EENT Eyes: Present: PERRL, EOM intact ENT: hearing intact, dentition normal - Respiratory Respiratory: bilateral: CTA - Cardiovascular Rhythm: regular Heart Sounds: Present: S1 & S2 Results - Labs CBC & Chem 7: 06/19/18 04:32 06/19/18 08:26 Labs: Abnormal lab results 06/18/18 06/18/18 06/18/18 Range/Units 15:20 15:30 15:40 WBC 14.0 H (4.5-11.0) K/mm3 RBC 5.80 H (3.65-5.03) M/mm3 Hgb 17.4 H (11.8-15.2) gm/dl Hct 57.0 H (35.5-45.6) % MCV 98 H (84-94) fl MCHC 31 L (32-34) % RDW 15.5 H (13.2-15.2) % Plt Count 133 L (140-440) K/mm3 Lymph % (Auto) 9.8 L (13.4-35.0) % [place] # (0.0-0.8) K/mm3 Seg Neutrophils % 84.4 H (40.0-70.0) % Seg Neutrophils # 11.8 H (1.8-7.7) K/mm3 VBG pH (7.320-7.420) Sodium (137-145) mmol/L Potassium (3.6-5.0) mmol/L Chloride (98-107) mmol/L BUN (9-20) mg/dL Creatinine (0.8-1.5) mg/dL Glucose (75-100) mg/dL POC Glucose > 500 H (70-105) Hemoglobin A1c 22.4 H (4-6) % Magnesium (1.7-2.3) mg/dL Alkaline Phosphatase (35-129) units/L Total Protein (6.3-8.2) g/dL Albumin (3.9-5) g/dL Triglycerides (2-149) mg/dL Cholesterol (50-199) mg/dL 06/18/18 06/18/18 06/18/18 Range/Units 15:40 15:40 15:44 WBC (4.5-11.0) K/mm3 RBC (3.65-5.03) M/mm3 Hgb (11.8-15.2) gm/dl Hct (35.5-45.6) % MCV (84-94) fl MCHC (32-34) % RDW (13.2-15.2) % Plt Count (140-440) K/mm3 Lymph % (Auto) (13.4-35.0) % [place] # (0.0-0.8) K/mm3 Seg Neutrophils % (40.0-70.0) % Seg Neutrophils # (1.8-7.7) K/mm3 VBG pH 7.293 L (7.320-7.420) Sodium 153 H (137-145) mmol/L Potassium 5.1 H (3.6-5.0) mmol/L Chloride (98-107) mmol/L BUN 58 H (9-20) mg/dL Creatinine 2.3 H (0.8-1.5) mg/dL Glucose 1083 H* (75-100) mg/dL POC Glucose (70-105) Hemoglobin A1c (4-6) % Magnesium (1.7-2.3) mg/dL Alkaline Phosphatase 143 H (35-129) units/L Total Protein (6.3-8.2) g/dL Albumin (3.9-5) g/dL Triglycerides (2-149) mg/dL Cholesterol (50-199) mg/dL 06/18/18 06/18/18 06/18/18 Range/Units 16:59 16:59 18:54 WBC (4.5-11.0) K/mm3 RBC (3.65-5.03) M/mm3 Hgb (11.8-15.2) gm/dl Hct (35.5-45.6) % MCV (84-94) fl MCHC (32-34) % RDW (13.2-15.2) % Plt Count (140-440) K/mm3 Lymph % (Auto) (13.4-35.0) % [place] # (0.0-0.8) K/mm3 Seg Neutrophils % (40.0-70.0) % Seg Neutrophils # (1.8-7.7) K/mm3 VBG pH (7.320-7.420) Sodium 158 H (137-145) mmol/L Potassium (3.6-5.0) mmol/L Chloride 116.2 H (98-107) mmol/L BUN 55 H (9-20) mg/dL Creatinine 2.4 H (0.8-1.5) mg/dL Glucose 897 H* (75-100) mg/dL POC Glucose 437 H (70-105) Hemoglobin A1c (4-6) % Magnesium 3.30 H (1.7-2.3) mg/dL Alkaline Phosphatase (35-129) units/L Total Protein (6.3-8.2) g/dL Albumin (3.9-5) g/dL Triglycerides (2-149) mg/dL Cholesterol (50-199) mg/dL 06/18/18 06/18/18 06/18/18 Range/Units 18:57 20:06 20:58 WBC (4.5-11.0) K/mm3 RBC (3.65-5.03) M/mm3 Hgb (11.8-15.2) gm/dl Hct (35.5-45.6) % MCV (84-94) fl MCHC (32-34) % RDW (13.2-15.2) % Plt Count (140-440) K/mm3 Lymph % (Auto) (13.4-35.0) % [place] # (0.0-0.8) K/mm3 Seg Neutrophils % (40.0-70.0) % Seg Neutrophils # (1.8-7.7) K/mm3 VBG pH (7.320-7.420) Sodium 163 H* (137-145) mmol/L Potassium (3.6-5.0) mmol/L Chloride 122.4 H (98-107) mmol/L BUN 51 H (9-20) mg/dL Creatinine 1.9 H (0.8-1.5) mg/dL Glucose 687 H* (75-100) mg/dL POC Glucose 412 H 384 H (70-105) Hemoglobin A1c (4-6) % Magnesium (1.7-2.3) mg/dL Alkaline Phosphatase (35-129) units/L Total Protein (6.3-8.2) g/dL Albumin (3.9-5) g/dL Triglycerides (2-149) mg/dL Cholesterol (50-199) mg/dL 06/18/18 06/18/18 06/18/18 Range/Units 21:17 21:17 21:17 WBC (4.5-11.0) K/mm3 RBC (3.65-5.03) M/mm3 Hgb (11.8-15.2) gm/dl Hct (35.5-45.6) % MCV (84-94) fl MCHC (32-34) % RDW (13.2-15.2) % Plt Count (140-440) K/mm3 Lymph % (Auto) (13.4-35.0) % [place] # (0.0-0.8) K/mm3 Seg Neutrophils % (40.0-70.0) % Seg Neutrophils # (1.8-7.7) K/mm3 VBG pH (7.320-7.420) Sodium 166 H* (137-145) mmol/L Potassium (3.6-5.0) mmol/L Chloride 124.2 H (98-107) mmol/L BUN 48 H (9-20) mg/dL Creatinine 1.6 H (0.8-1.5) mg/dL Glucose 455 H (75-100) mg/dL POC Glucose (70-105) Hemoglobin A1c (4-6) % Magnesium 3.50 H (1.7-2.3) mg/dL Alkaline Phosphatase (35-129) units/L Total Protein (6.3-8.2) g/dL Albumin (3.9-5) g/dL Triglycerides 508 H (2-149) mg/dL Cholesterol 237 H (50-199) mg/dL 06/18/18 06/18/18 06/18/18 Range/Units 22:17 22:41 23:58 WBC (4.5-11.0) K/mm3 RBC (3.65-5.03) M/mm3 Hgb (11.8-15.2) gm/dl Hct (35.5-45.6) % MCV (84-94) fl MCHC (32-34) % RDW (13.2-15.2) % Plt Count (140-440) K/mm3 Lymph % (Auto) (13.4-35.0) % [place] # (0.0-0.8) K/mm3 Seg Neutrophils % (40.0-70.0) % Seg Neutrophils # (1.8-7.7) K/mm3 VBG pH (7.320-7.420) Sodium 166 H* (137-145) mmol/L Potassium (3.6-5.0) mmol/L Chloride 128.5 H (98-107) mmol/L BUN 47 H (9-20) mg/dL Creatinine 1.7 H (0.8-1.5) mg/dL Glucose 369 H (75-100) mg/dL POC Glucose 347 H 274 H (70-105) Hemoglobin A1c (4-6) % Magnesium (1.7-2.3) mg/dL Alkaline Phosphatase (35-129) units/L Total Protein (6.3-8.2) g/dL Albumin (3.9-5) g/dL Triglycerides (2-149) mg/dL Cholesterol (50-199) mg/dL 06/19/18 06/19/18 06/19/18 Range/Units 00:25 01:08 02:20 WBC (4.5-11.0) K/mm3 RBC (3.65-5.03) M/mm3 Hgb (11.8-15.2) gm/dl Hct (35.5-45.6) % MCV (84-94) fl MCHC (32-34) % RDW (13.2-15.2) % Plt Count (140-440) K/mm3 Lymph % (Auto) (13.4-35.0) % [place] # (0.0-0.8) K/mm3 Seg Neutrophils % (40.0-70.0) % Seg Neutrophils # (1.8-7.7) K/mm3 VBG pH (7.320-7.420) Sodium 168 H* (137-145) mmol/L Potassium (3.6-5.0) mmol/L Chloride 127.4 H (98-107) mmol/L BUN 46 H (9-20) mg/dL Creatinine (0.8-1.5) mg/dL Glucose 272 H (75-100) mg/dL POC Glucose 284 H 119 H (70-105) Hemoglobin A1c (4-6) % Magnesium (1.7-2.3) mg/dL Alkaline Phosphatase (35-129) units/L Total Protein (6.3-8.2) g/dL Albumin (3.9-5) g/dL Triglycerides (2-149) mg/dL Cholesterol (50-199) mg/dL 06/19/18 06/19/18 06/19/18 Range/Units 03:08 04:10 04:32 WBC 13.2 H (4.5-11.0) K/mm3 RBC 5.12 H (3.65-5.03) M/mm3 Hgb 15.3 H (11.8-15.2) gm/dl Hct 47.4 H D (35.5-45.6) % MCV (84-94) fl MCHC (32-34) % RDW (13.2-15.2) % Plt Count 91 L (140-440) K/mm3 Lymph % (Auto) (13.4-35.0) % [place] # 0.9 H (0.0-0.8) K/mm3 Seg Neutrophils % 72.6 H (40.0-70.0) % Seg Neutrophils # 9.5 H (1.8-7.7) K/mm3 VBG pH (7.320-7.420) Sodium (137-145) mmol/L Potassium (3.6-5.0) mmol/L Chloride (98-107) mmol/L BUN (9-20) mg/dL Creatinine (0.8-1.5) mg/dL Glucose (75-100) mg/dL POC Glucose 164 H 48 L (70-105) Hemoglobin A1c (4-6) % Magnesium (1.7-2.3) mg/dL Alkaline Phosphatase (35-129) units/L Total Protein (6.3-8.2) g/dL Albumin (3.9-5) g/dL Triglycerides (2-149) mg/dL Cholesterol (50-199) mg/dL 06/19/18 06/19/18 06/19/18 Range/Units 04:32 05:17 06:17 WBC (4.5-11.0) K/mm3 RBC (3.65-5.03) M/mm3 Hgb (11.8-15.2) gm/dl Hct (35.5-45.6) % MCV (84-94) fl MCHC (32-34) % RDW (13.2-15.2) % Plt Count (140-440) K/mm3 Lymph % (Auto) (13.4-35.0) % [place] # (0.0-0.8) K/mm3 Seg Neutrophils % (40.0-70.0) % Seg Neutrophils # (1.8-7.7) K/mm3 VBG pH (7.320-7.420) Sodium (137-145) mmol/L Potassium (3.6-5.0) mmol/L Chloride (98-107) mmol/L BUN (9-20) mg/dL Creatinine (0.8-1.5) mg/dL Glucose (75-100) mg/dL POC Glucose 200 H 256 H 170 H (70-105) Hemoglobin A1c (4-6) % Magnesium (1.7-2.3) mg/dL Alkaline Phosphatase (35-129) units/L Total Protein (6.3-8.2) g/dL Albumin (3.9-5) g/dL Triglycerides (2-149) mg/dL Cholesterol (50-199) mg/dL 06/19/18 06/19/18 06/19/18 Range/Units 06:45 08:08 08:26 WBC (4.5-11.0) K/mm3 RBC (3.65-5.03) M/mm3 Hgb (11.8-15.2) gm/dl Hct (35.5-45.6) % MCV (84-94) fl MCHC (32-34) % RDW (13.2-15.2) % Plt Count (140-440) K/mm3 Lymph % (Auto) (13.4-35.0) % [place] # (0.0-0.8) K/mm3 Seg Neutrophils % (40.0-70.0) % Seg Neutrophils # (1.8-7.7) K/mm3 VBG pH (7.320-7.420) Sodium 164 H* (137-145) mmol/L Potassium (3.6-5.0) mmol/L Chloride 128.9 H (98-107) mmol/L BUN 41 H (9-20) mg/dL Creatinine (0.8-1.5) mg/dL Glucose 126 H (75-100) mg/dL POC Glucose 144 H 119 H (70-105) Hemoglobin A1c (4-6) % Magnesium (1.7-2.3) mg/dL Alkaline Phosphatase (35-129) units/L Total Protein 6.1 L (6.3-8.2) g/dL Albumin 3.6 L (3.9-5) g/dL Triglycerides (2-149) mg/dL Cholesterol (50-199) mg/dL 06/19/18 06/19/18 Range/Units 08:56 10:05 WBC (4.5-11.0) K/mm3 RBC (3.65-5.03) M/mm3 Hgb (11.8-15.2) gm/dl Hct (35.5-45.6) % MCV (84-94) fl MCHC (32-34) % RDW (13.2-15.2) % Plt Count (140-440) K/mm3 Lymph % (Auto) (13.4-35.0) % [place] # (0.0-0.8) K/mm3 Seg Neutrophils % (40.0-70.0) % Seg Neutrophils # (1.8-7.7) K/mm3 VBG pH (7.320-7.420) Sodium (137-145) mmol/L Potassium (3.6-5.0) mmol/L Chloride (98-107) mmol/L BUN (9-20) mg/dL Creatinine (0.8-1.5) mg/dL Glucose (75-100) mg/dL POC Glucose 121 H 200 H (70-105) Hemoglobin A1c (4-6) % Magnesium (1.7-2.3) mg/dL Alkaline Phosphatase (35-129) units/L Total Protein (6.3-8.2) g/dL Albumin (3.9-5) g/dL Triglycerides (2-149) mg/dL Cholesterol (50-199) mg/dL - Imaging and Cardiology Chest x-ray: image reviewed Assessment and Plan 53 y/o male with DKA, hypernatremia, thrombocytopenia and Hypermagnesemia. 1. Stop Insulin Drip 2. Calculate total insulin and place on Long acting with q4 FSBS and q6hour BMP's 3. Feed patient and encourage water intake 4. continue D5w drip with k 5. Do not correct sodium by more than 12 in 24 hours as this could precipitate cerebral edema Continue ICU monitoring. CCt 31 minutes.
[2018-06-19] MEDS: LANTUS SUB-Q SCH (13:36)
[2018-06-19] MEDS: DOLOPHINE PO SCH (13:38)
[2018-06-19] MEDS: HumaLOG SUB-Q SCH ×3 (15:28→21:09)
[2018-06-19 18:12] LABS: Calcium 8.3 mg/dL (8.4-10.2)
[2018-06-20 01:37] LABS: Calcium 8.5 mg/dL (8.4-10.2)
[2018-06-20] MEDS: HumaLOG SUB-Q SCH ×6 (01:58→22:18)
[2018-06-20 07:00] LABS: Basophils % (Auto) 0.4 % (0.0-1.8); Eosinophils # (Auto) 0.2 K/mm3 (0.0-0.4); Eosinophils % (Auto) 1.7 % (0.0-4.3); Hematocrit 43.1 % (35.5-45.6); Hemoglobin 14.1 gm/dl (11.8-15.2); Lymphocytes # (Auto) 2.5 K/mm3 (1.2-5.4); Lymphocytes % (Auto) 25.7 % (13.4-35.0); Mean Corpuscular HGB Conc 33 % (32-34); Mean Corpuscular Volume 93 fl (84-94); Monocytes # (Auto) 0.6 K/mm3 (0.0-0.8); Monocytes % (Auto) 5.8 % (0.0-7.3); Red Blood Count 4.63 M/mm3 (3.65-5.03); Red Cell Distribution Width 13.8 % (13.2-15.2)
[2018-06-20 07:07] LABS: Platelet Count 67 K/mm3 (140-440)
[2018-06-20 07:48] LABS: Albumin 3.2 g/dL (3.9-5); Calcium 8.5 mg/dL (8.4-10.2)
[2018-06-20] MEDS: KCL 20 MEQ in D5W 1,000 ML IV SCH (08:59)
[2018-06-20] MEDS: LANTUS SUB-Q SCH (09:03)
[2018-06-20] MEDS: DOLOPHINE PO SCH (09:03)
[2018-06-20] MEDS: TENORMIN PO SCH (09:04)
[2018-06-20] MEDS: LOVENOX SUB-Q SCH (09:04)
--- NOTE | 2018-06-20 09:39 | Progress Note ---
Assessment and Plan Patient is a 53 year old gentleman who has a history of hypertension who was seen in my office about 6 weeks ago for atopic dermatitis. Was commenced on prednisone after topical steroids was ineffective. Today patient presents with progressive worsening polyuria, polydipsia, polyphagia, weight loss and fatigue. Patient had seen me in the office in about 3 months ago with pressure was 130. Had no prior history of diabetes. He was advised to return for further evaluation. However he did not return because of high insurance deductible. His present symptoms started about 2 weeks ago and progressively got worse. She came into my office today. In the office blood pressure was found to be extremely high inguinal direct in the glucometer. He was fatigued. Denies any fever or chills. No chest pain or shortness of breath or PND. No abdomen pain, nausea or vomiting. Patient was therefore admitted to the emergency department. The patient was found to be 1084. BUN was 58 and creatinine was 2.3. Venous pH was 7.9. Potassium and phosphorus levels where normal. Bicarbonate was normal at 24. Anion gap was unremarkable. Patient was commenced on normal saline and insulin drips. Inpatient admission was requested. Had hypernatremia that is worsening to 166. commence pt on D5W as blood sugar level have improve to the 120s. Hynoponatrmia continues to improve - Diabetic ketoacidosis - resolving normal anion gap, and Co2 level Had an episode of hypoglycemia last night commence pt on D5 W and continue with SC insulin - New onset diabetes mellitus with diabetic ketoacidosis Continue treatment as above Diabetic education A1c 22.4 - Hypernatremia - improving continue with D5W Encourage liberal oral fluid intake - Acute renal failure from prerenal azotemia - greatly improved Anticipates further improvement with iv hydration -DVT prophylaxis with Lovenox and GI with Pepcid - CCT 35 min Will transfer to the floor Subjective Date of service: 06/20/18 Principal diagnosis: DKA, new onset T2DM, LO, hypernatremia Interval history: Pt seen and examined. Feeling better. No morae polyuria or polydypsia Objective - Exam Narrative Exam: Constitutional: Well-nourished well-developed. In no distress Head: Normocephalic atraumatic Eyes: Pupils are equal round and reactive to light Nose: No enlarged turbinates, no septal deviation. Mouth: Dry mucous membranes. Neck: Supple no thyromegaly. No bruit. No JVD Heart: Regular rate and rhythm, S1-S2 normal. No rubs murmurs or gallop Lungs: Clear to auscultation bilaterally. no rales or rhonchi Abdomen: Soft, nontender. Bowel sound are present. Extremities: No edema, no cyanosis, no clubbing. Neuro: Alert oriented Oriented x3. No focal sensory or motor deficit. Skin: rashes on the skin and left hand. no hyperpigmented spots Musculoskeletal system: No joint pain or swelling Hematological: No petechia or subcutanous hemorrhages. Immunological: No multiple septic spots on the skin Lymphatic: No generalized lymphadenopathy Psychiatry: Euthymic. Calm. - Constitutional Vitals: Vital Signs - 12hr 06/19/18 06/19/18 06/19/18 21:40 21:50 22:00 Temperature Pulse Rate 56 L 55 L 56 L Respiratory 10 L 9 L 10 L Rate Blood Pressure 108/72 108/72 87/54 O2 Sat by Pulse 98 98 98 Oximetry 06/19/18 06/19/18 06/19/18 22:10 22:20 22:30 Temperature Pulse Rate 56 L 56 L 60 Respiratory 11 L 10 L 12 Rate Blood Pressure 108/72 108/72 108/72 O2 Sat by Pulse 98 97 97 Oximetry 06/19/18 06/19/18 06/19/18 22:40 22:50 23:00 Temperature Pulse Rate 57 L 54 L 55 L Respiratory 20 13 8 L Rate Blood Pressure 108/72 108/72 87/54 O2 Sat by Pulse 98 98 99 Oximetry 06/19/18 06/19/18 06/19/18 23:10 23:20 23:30 Temperature Pulse Rate 54 L 54 L 53 L Respiratory 9 L 10 L 10 L Rate Blood Pressure 89/59 89/59 89/59 O2 Sat by Pulse 98 98 98 Oximetry 06/19/18 06/19/18 06/19/18 23:35 23:40 23:50 Temperature Pulse Rate 54 L 54 L 53 L Respiratory 9 L 9 L 10 L Rate Blood Pressure 89/59 89/59 89/59 O2 Sat by Pulse 98 98 97 Oximetry 06/20/18 06/20/18 06/20/18 00:00 00:10 00:20 Temperature Pulse Rate 54 L 55 L 57 L Respiratory 9 L 11 L 10 L Rate Blood Pressure 89/59 92/65 92/65 O2 Sat by Pulse 98 99 100 Oximetry 06/20/18 06/20/18 06/20/18 00:30 00:40 00:50 Temperature Pulse Rate 53 L 55 L 57 L Respiratory 9 L 9 L 9 L Rate Blood Pressure 92/65 92/65 92/65 O2 Sat by Pulse 99 99 99 Oximetry 06/20/18 06/20/18 06/20/18 01:00 01:10 01:20 Temperature 98.4 F Pulse Rate 55 L 57 L 56 L Respiratory 9 L 12 11 L Rate Blood Pressure 95/59 95/59 95/59 O2 Sat by Pulse 98 98 99 Oximetry 06/20/18 06/20/18 06/20/18 01:30 01:40 01:50 Temperature Pulse Rate 62 60 56 L Respiratory 11 L 10 L 7 L Rate Blood Pressure 95/59 92/65 92/65 O2 Sat by Pulse 99 98 98 Oximetry 06/20/18 06/20/18 06/20/18 02:00 02:10 02:20 Temperature Pulse Rate 60 56 L 58 L Respiratory 7 L 9 L 9 L Rate Blood Pressure 95/72 95/72 95/72 O2 Sat by Pulse 97 99 99 Oximetry 06/20/18 06/20/18 06/20/18 02:30 02:40 02:50 Temperature Pulse Rate 59 L 59 L 59 L Respiratory 9 L 9 L 8 L Rate Blood Pressure 95/72 95/72 95/72 O2 Sat by Pulse 98 98 98 Oximetry 06/20/18 06/20/18 06/20/18 03:00 03:10 03:20 Temperature Pulse Rate 59 L 58 L 58 L Respiratory 8 L 8 L 9 L Rate Blood Pressure 100/63 100/63 100/63 O2 Sat by Pulse 98 98 98 Oximetry 06/20/18 06/20/18 06/20/18 03:30 03:40 03:50 Temperature Pulse Rate 58 L 58 L 59 L Respiratory 9 L 9 L 7 L Rate Blood Pressure 100/63 95/72 95/72 O2 Sat by Pulse 98 97 98 Oximetry 06/20/18 06/20/18 06/20/18 04:00 04:10 04:20 Temperature Pulse Rate 59 L 56 L 58 L Respiratory 8 L 8 L 9 L Rate Blood Pressure 104/62 104/62 104/62 O2 Sat by Pulse 97 97 97 Oximetry 06/20/18 06/20/18 06/20/18 04:30 04:40 04:50 Temperature Pulse Rate 57 L 58 L 58 L Respiratory 9 L 9 L 9 L Rate Blood Pressure 104/62 104/62 104/62 O2 Sat by Pulse 98 98 97 Oximetry 06/20/18 06/20/18 06/20/18 05:00 05:10 05:20 Temperature 99.3 F Pulse Rate 61 57 L 56 L Respiratory 12 8 L 8 L Rate Blood Pressure 104/69 104/69 104/69 O2 Sat by Pulse 97 98 99 Oximetry 06/20/18 06/20/18 06/20/18 05:30 05:40 05:50 Temperature Pulse Rate 58 L 65 58 L Respiratory 10 L 12 12 Rate Blood Pressure 104/69 104/69 104/69 O2 Sat by Pulse 98 98 97 Oximetry 06/20/18 06/20/18 06/20/18 06:00 06:10 06:20 Temperature Pulse Rate 59 L 58 L 61 Respiratory 9 L 10 L 7 L Rate Blood Pressure 91/64 104/69 104/69 O2 Sat by Pulse 98 99 97 Oximetry 06/20/18 06/20/18 06/20/18 06:30 06:40 06:50 Temperature Pulse Rate 58 L 59 L 57 L Respiratory 10 L 10 L 10 L Rate Blood Pressure 104/69 104/69 104/69 O2 Sat by Pulse 98 98 98 Oximetry 06/20/18 06/20/18 06/20/18 07:00 07:10 08:51 Temperature 97.8 F Pulse Rate 57 L 57 L Respiratory 10 L 11 L Rate Blood Pressure 104/69 117/64 O2 Sat by Pulse 98 97 Oximetry 06/20/18 09:04 Temperature Pulse Rate 54 L Respiratory Rate Blood Pressure 111/33 O2 Sat by Pulse Oximetry - Labs CBC & Chem 7: 06/20/18 05:01 06/20/18 05:01 Labs: Abnormal lab results 06/19/18 06/19/18 06/19/18 Range/Units 10:05 11:13 12:06 Plt Count (140-440) K/mm3 Sodium (137-145) mmol/L Chloride (98-107) mmol/L BUN (9-20) mg/dL Glucose (75-100) mg/dL POC Glucose 200 H 170 H 164 H (70-105) Calcium (8.4-10.2) mg/dL Total Protein (6.3-8.2) g/dL Albumin (3.9-5) g/dL 06/19/18 06/19/18 06/19/18 Range/Units 14:14 17:21 17:40 Plt Count (140-440) K/mm3 Sodium 153 H D (137-145) mmol/L Chloride 120.3 H (98-107) mmol/L BUN 35 H (9-20) mg/dL Glucose 327 H (75-100) mg/dL POC Glucose 251 H 355 H (70-105) Calcium 8.3 L (8.4-10.2) mg/dL Total Protein (6.3-8.2) g/dL Albumin (3.9-5) g/dL 06/19/18 06/20/18 06/20/18 Range/Units 21:07 00:21 01:52 Plt Count (140-440) K/mm3 Sodium 154 H (137-145) mmol/L Chloride 118.9 H (98-107) mmol/L BUN 32 H (9-20) mg/dL Glucose 212 H (75-100) mg/dL POC Glucose 315 H 263 H (70-105) Calcium (8.4-10.2) mg/dL Total Protein (6.3-8.2) g/dL Albumin (3.9-5) g/dL 06/20/18 06/20/18 06/20/18 Range/Units 05:01 05:01 06:13 Plt Count 67 L (140-440) K/mm3 Sodium 156 H (137-145) mmol/L Chloride 117.8 H (98-107) mmol/L BUN 29 H (9-20) mg/dL Glucose 206 H (75-100) mg/dL POC Glucose 230 H (70-105) Calcium (8.4-10.2) mg/dL Total Protein 5.0 L (6.3-8.2) g/dL Albumin 3.2 L (3.9-5) g/dL
[2018-06-20] MEDS: D5W 1,000 ML IV SCH (09:59)
[2018-06-20] MEDS ORDERED: PEPCID PO SCH (10:00)
[2018-06-20] MEDS ORDERED: LANTUS SUB-Q ONE (11:00)
--- NOTE | 2018-06-20 11:12 | Progress Note ---
Assessment and Plan 53 y/o male with DKA, hypernatremia, thrombocytopenia and Hypermagnesemia. 1. Stable for transfer out of unit 2. Change FS to AC and HS 3. Continue D5W but stop K replacement 4. Continue q6hour checks on Na 5. Do not correct sodium by more than 12 in 24 hours as this could precipitate cerebral edema Stable for transfer to floor Subjective Date of service: 06/20/18 Principal diagnosis: DKA, new onset T2DM, LO, hypernatremia Interval history: No acute events. Sugars stable. Na is improving appropriately. K is replenished. No family at bedside. Objective - Constitutional Vitals: Vital Signs - 12hr 06/19/18 06/19/18 06/19/18 23:10 23:20 23:30 Temperature Pulse Rate 54 L 54 L 53 L Respiratory 9 L 10 L 10 L Rate Blood Pressure 89/59 89/59 89/59 O2 Sat by Pulse 98 98 98 Oximetry 06/19/18 06/19/18 06/19/18 23:35 23:40 23:50 Temperature Pulse Rate 54 L 54 L 53 L Respiratory 9 L 9 L 10 L Rate Blood Pressure 89/59 89/59 89/59 O2 Sat by Pulse 98 98 97 Oximetry 06/20/18 06/20/18 06/20/18 00:00 00:10 00:20 Temperature Pulse Rate 54 L 55 L 57 L Respiratory 9 L 11 L 10 L Rate Blood Pressure 89/59 92/65 92/65 O2 Sat by Pulse 98 99 100 Oximetry 06/20/18 06/20/18 06/20/18 00:30 00:40 00:50 Temperature Pulse Rate 53 L 55 L 57 L Respiratory 9 L 9 L 9 L Rate Blood Pressure 92/65 92/65 92/65 O2 Sat by Pulse 99 99 99 Oximetry 06/20/18 06/20/18 06/20/18 01:00 01:10 01:20 Temperature 98.4 F Pulse Rate 55 L 57 L 56 L Respiratory 9 L 12 11 L Rate Blood Pressure 95/59 95/59 95/59 O2 Sat by Pulse 98 98 99 Oximetry 06/20/18 06/20/18 06/20/18 01:30 01:40 01:50 Temperature Pulse Rate 62 60 56 L Respiratory 11 L 10 L 7 L Rate Blood Pressure 95/59 92/65 92/65 O2 Sat by Pulse 99 98 98 Oximetry 06/20/18 06/20/18 06/20/18 02:00 02:10 02:20 Temperature Pulse Rate 60 56 L 58 L Respiratory 7 L 9 L 9 L Rate Blood Pressure 95/72 95/72 95/72 O2 Sat by Pulse 97 99 99 Oximetry 06/20/18 06/20/18 06/20/18 02:30 02:40 02:50 Temperature Pulse Rate 59 L 59 L 59 L Respiratory 9 L 9 L 8 L Rate Blood Pressure 95/72 95/72 95/72 O2 Sat by Pulse 98 98 98 Oximetry 06/20/18 06/20/18 06/20/18 03:00 03:10 03:20 Temperature Pulse Rate 59 L 58 L 58 L Respiratory 8 L 8 L 9 L Rate Blood Pressure 100/63 100/63 100/63 O2 Sat by Pulse 98 98 98 Oximetry 06/20/18 06/20/18 06/20/18 03:30 03:40 03:50 Temperature Pulse Rate 58 L 58 L 59 L Respiratory 9 L 9 L 7 L Rate Blood Pressure 100/63 95/72 95/72 O2 Sat by Pulse 98 97 98 Oximetry 06/20/18 06/20/18 06/20/18 04:00 04:10 04:20 Temperature Pulse Rate 59 L 56 L 58 L Respiratory 8 L 8 L 9 L Rate Blood Pressure 104/62 104/62 104/62 O2 Sat by Pulse 97 97 97 Oximetry 06/20/18 06/20/18 06/20/18 04:30 04:40 04:50 Temperature Pulse Rate 57 L 58 L 58 L Respiratory 9 L 9 L 9 L Rate Blood Pressure 104/62 104/62 104/62 O2 Sat by Pulse 98 98 97 Oximetry 06/20/18 06/20/18 06/20/18 05:00 05:10 05:20 Temperature 99.3 F Pulse Rate 61 57 L 56 L Respiratory 12 8 L 8 L Rate Blood Pressure 104/69 104/69 104/69 O2 Sat by Pulse 97 98 99 Oximetry 06/20/18 06/20/18 06/20/18 05:30 05:40 05:50 Temperature Pulse Rate 58 L 65 58 L Respiratory 10 L 12 12 Rate Blood Pressure 104/69 104/69 104/69 O2 Sat by Pulse 98 98 97 Oximetry 0106/20/18 06/20/18 06:00 06:10 06:20 Temperature Pulse Rate 59 L 58 L 61 Respiratory 9 L 10 L 7 L Rate Blood Pressure 91/64 104/69 104/69 O2 Sat by Pulse 98 99 97 Oximetry 06/20/18 06/20/18 06/20/18 06:30 06:40 06:50 Temperature Pulse Rate 58 L 59 L 57 L Respiratory 10 L 10 L 10 L Rate Blood Pressure 104/69 104/69 104/69 O2 Sat by Pulse 98 98 98 Oximetry 06/20/18 06/20/18 06/20/18 07:00 07:10 08:00 Temperature Pulse Rate 57 L 57 L 78 Respiratory 10 L 11 L 14 Rate Blood Pressure 104/69 117/64 117/64 O2 Sat by Pulse 98 97 99 Oximetry 06/20/18 06/20/18 06/20/18 08:51 09:00 09:04 Temperature 97.8 F Pulse Rate 71 54 L Respiratory 11 L Rate Blood Pressure 106/80 111/33 O2 Sat by Pulse 97 Oximetry 06/20/18 10:00 Temperature Pulse Rate 75 Respiratory 12 Rate Blood Pressure 111/33 O2 Sat by Pulse 98 Oximetry General appearance: Present: no acute distress - EENT Eyes: PERRL, EOM intact ENT: hearing intact, clear oral mucosa - Neck Neck: supple, normal ROM - Respiratory Respiratory effort: normal Respiratory: bilateral: CTA - Cardiovascular Rhythm: regular Heart Sounds: Present: S1 & S2 Extremities: no ischemia - Gastrointestinal General gastrointestinal: Present: soft, non-tender, non-distended Rectal Exam: deferred - Genitourinary Male genitourinary: deferred - Musculoskeletal Musculoskeletal: strength equal bilaterally - Neurologic Neurologic: CNII-XII intact - Labs CBC & Chem 7: 06/20/18 05:01 06/20/18 05:01 Labs: Abnormal lab results 06/19/18 06/19/18 06/19/18 Range/Units 11:13 12:06 14:14 Plt Count (140-440) K/mm3 Sodium (137-145) mmol/L Chloride (98-107) mmol/L BUN (9-20) mg/dL Glucose (75-100) mg/dL POC Glucose 170 H 164 H 251 H (70-105) Calcium (8.4-10.2) mg/dL Total Protein (6.3-8.2) g/dL Albumin (3.9-5) g/dL 06/19/18 06/19/18 06/19/18 Range/Units 17:21 17:40 21:07 Plt Count (140-440) K/mm3 Sodium 153 H D (137-145) mmol/L Chloride 120.3 H (98-107) mmol/L BUN 35 H (9-20) mg/dL Glucose 327 H (75-100) mg/dL POC Glucose 355 H 315 H (70-105) Calcium 8.3 L (8.4-10.2) mg/dL Total Protein (6.3-8.2) g/dL Albumin (3.9-5) g/dL 06/20/18 06/20/18 06/20/18 Range/Units 00:21 01:52 05:01 Plt Count 67 L (140-440) K/mm3 Sodium 154 H (137-145) mmol/L Chloride 118.9 H (98-107) mmol/L BUN 32 H (9-20) mg/dL Glucose 212 H (75-100) mg/dL POC Glucose 263 H (70-105) Calcium (8.4-10.2) mg/dL Total Protein (6.3-8.2) g/dL Albumin (3.9-5) g/dL 06/20/18 06/20/18 06/20/18 Range/Units 05:01 06:13 09:56 Plt Count (140-440) K/mm3 Sodium 156 H (137-145) mmol/L Chloride 117.8 H (98-107) mmol/L BUN 29 H (9-20) mg/dL Glucose 206 H (75-100) mg/dL POC Glucose 230 H 390 H (70-105) Calcium (8.4-10.2) mg/dL Total Protein 5.0 L (6.3-8.2) g/dL Albumin 3.2 L (3.9-5) g/dL Medications & Allergies - Medications Allergies/Adverse Reactions: Allergies No Known Allergies Allergy (Verified 06/18/18 15:33) Home Medications: Home Medications Medication Instructions Recorded Confirmed Last Taken Type Atenolol [Tenormin] 50 mg PO DAILY 06/18/18 06/18/18 Unknown History Atorvastatin [Lipitor Tab] 80 mg PO QHS 06/18/18 06/18/18 Unknown History clonazePAM [Clonazepam] 0.5 mg PO BID 06/18/18 06/18/18 Unknown History Active Medications: Generic Name Dose Route Start Last Admin Trade Name Freq PRN Reason Stop Dose Admin Atenolol 50 mg 06/18/18 21:00 06/20/18 09:04 Tenormin PO Not Given DAILY [facility]RO Atorvastatin Calcium 80 mg 06/18/18 22:00 06/19/18 21:06 Lipitor PO 80 mg QHS [facility] Administration Clonazepam 0.5 mg 06/18/18 22:00 06/20/18 09:03 Klonopin PO 0.5 mg BID [facility] Administration Dextrose 0 ml 06/18/18 20:55 06/19/18 04:18 D50w (25gm) Syringe IV 50 ml PRN PRN Administration Hypoglycemia Dextrose 1,000 mls @ 125 mls/hr 06/20/18 10:00 06/20/18 09:59 D5w IV 125 mls/hr DIRECT [facility]RO Administration Insulin Glargine 30 units 06/21/18 10:00 Lantus SUB-Q DAILY [facility] Insulin Human Lispro 0 unit 06/20/18 11:30 Humalog SUB-Q ACHS [facility] Protocol Methadone HCl 30 mg 06/19/18 13:00 06/20/18 09:03 Dolophine PO 30 mg DAILY [facility]RO Administration
[2018-06-20 14:31] LABS: BUN/Creatinine Ratio 21; Blood Urea Nitrogen 25 mg/dL (9-20); Calcium 8.3 mg/dL (8.4-10.2); Hemolysis Index 13
[2018-06-20] MEDS ORDERED: MILK OF MAGNESIA PO ONE (23:00)
[2018-06-21] MEDS: D5W 1,000 ML IV SCH (02:30)
[2018-06-21 05:45] LABS: Basophils % (Auto) 0.3 % (0.0-1.8); Eosinophils # (Auto) 0.1 K/mm3 (0.0-0.4); Eosinophils % (Auto) 1.3 % (0.0-4.3); Hemoglobin 13.8 gm/dl (11.8-15.2); Lymphocytes # (Auto) 1.9 K/mm3 (1.2-5.4); Lymphocytes % (Auto) 24.5 % (13.4-35.0); Mean Corpuscular HGB Conc 34 % (32-34); Mean Corpuscular Volume 91 fl (84-94); Monocytes # (Auto) 0.5 K/mm3 (0.0-0.8); Monocytes % (Auto) 6.1 % (0.0-7.3); Red Cell Distribution Width 13.1 % (13.2-15.2)
[2018-06-21 05:54] LABS: Platelet Count 52 K/mm3 (140-440)
[2018-06-21 06:10] LABS: Alanine Aminotransferase 24 units/L (7-56); Albumin 2.8 g/dL (3.9-5); BUN/Creatinine Ratio 20; Blood Urea Nitrogen 20 mg/dL (9-20); Calcium 8.3 mg/dL (8.4-10.2); Hemolysis Index 8
[2018-06-21] MEDS: HumaLOG SUB-Q SCH ×2 (07:30→11:30)
[2018-06-21] MEDS ORDERED: LANTUS SUB-Q SCH (10:00)
[2018-06-21] MEDS: TENORMIN PO SCH (10:42)
[2018-06-21] MEDS: DOLOPHINE PO SCH (10:44)
--- NOTE | 2018-06-21 12:29 | Progress Note ---
Assessment and Plan 53 y/o male with DKA, hypernatremia, thrombocytopenia and Hypermagnesemia. 1. Will defer to primary for further therapy. They will follow electrolytes and platelets 2. From a critical care standpoint, stable, we will sign off. Subjective Date of service: 06/21/18 Principal diagnosis: DKA, new onset T2DM, LO, hypernatremia Interval history: Successful transition out of ICU. Stable. Na improving appropriately. Objective - Constitutional Vitals: Vital Signs - 12hr 06/21/18 06/21/18 05:57 10:42 Temperature 99.5 F Pulse Rate 76 76 Respiratory 18 Rate Blood Pressure 92/49 92/49 O2 Sat by Pulse 97 Oximetry - Labs CBC & Chem 7: 06/21/18 05:01 06/21/18 05:01 Labs: Abnormal lab results 06/20/18 06/20/18 06/20/18 Range/Units 13:50 16:52 21:43 RDW (13.2-15.2) % Plt Count (140-440) K/mm3 Sodium 147 H D (137-145) mmol/L Chloride 113.7 H (98-107) mmol/L Carbon Dioxide 21 L (22-30) mmol/L BUN 25 H (9-20) mg/dL Glucose 291 H (75-100) mg/dL POC Glucose 217 H 355 H (70-105) Calcium 8.3 L (8.4-10.2) mg/dL Total Protein (6.3-8.2) g/dL Albumin (3.9-5) g/dL 06/21/18 06/21/18 06/21/18 Range/Units 05:01 05:01 07:44 RDW 13.1 L (13.2-15.2) % Plt Count 52 L (140-440) K/mm3 Sodium 148 H (137-145) mmol/L Chloride 114.3 H (98-107) mmol/L Carbon Dioxide (22-30) mmol/L BUN (9-20) mg/dL Glucose 301 H (75-100) mg/dL POC Glucose 323 H (70-105) Calcium 8.3 L (8.4-10.2) mg/dL Total Protein 5.0 L (6.3-8.2) g/dL Albumin 2.8 L (3.9-5) g/dL Medications & Allergies - Medications Allergies/Adverse Reactions: Allergies No Known Allergies Allergy (Verified 06/18/18 15:33) Home Medications: Home Medications Medication Instructions Recorded Confirmed Last Taken Type Atenolol [Tenormin] 50 mg PO DAILY 06/18/18 06/18/18 Unknown History Atorvastatin [Lipitor Tab] 80 mg PO QHS 06/18/18 06/18/18 Unknown History clonazePAM [Clonazepam] 0.5 mg PO BID 06/18/18 06/18/18 Unknown History Active Medications: Generic Name Dose Route Start Last Admin Trade Name Freq PRN Reason Stop Dose Admin Atenolol 50 mg 06/18/18 21:00 06/21/18 10:42 Tenormin PO Not Given DAILY [facility]RO Atorvastatin Calcium 80 mg 06/18/18 22:00 06/20/18 22:17 Lipitor PO 80 mg QHS [facility] Administration Clonazepam 0.5 mg 06/18/18 22:00 06/21/18 10:44 Klonopin PO 0.5 mg BID [facility] Administration Dextrose 0 ml 06/18/18 20:55 06/19/18 04:18 D50w (25gm) Syringe IV 50 ml PRN PRN Administration Hypoglycemia Dextrose 1,000 mls @ 125 mls/hr 06/20/18 10:00 06/21/18 02:30 D5w IV 125 mls/hr DIRECT [facility] Administration Insulin Glargine 30 units 06/21/18 10:00 06/21/18 07:30 Lantus SUB-Q 30 units DAILY [facility] Administration Insulin Human Lispro 0 unit 06/20/18 11:30 06/21/18 07:30 Humalog SUB-Q 6 unit ACHS [facility] Administration Protocol Methadone HCl 30 mg 06/19/18 13:00 06/21/18 10:44 Dolophine PO 30 mg DAILY [facility] Administration
--- NOTE | 2018-06-21 13:29 | Discharge Summary ---
Providers - Providers Date of Admission: 06/18/18 20:52 Date of discharge: 06/21/18 Attending physician: JOSE MANUEL QUAN 06/18/18 16:50 Consult to Physician [CONS] Stat Comment: Consulting Provider: JOSE MANUEL QUAN Physician Instructions: Reason For Exam: admission, DKA 06/18/18 20:55 Consult to Dietitian/Nutrition [CONS] Routine Physician Instructions: Reason For Exam: DKA Reason for Consult: Nutrition Recommendations Reason for Consult: Diet education 06/18/18 21:21 Consult to Physician [CONS] Routine Comment: Spoke with Dr. Calvert @ [phone] Consulting Provider: MAY CALVERT Physician Instructions: Reason For Exam: DKA Primary care physician: GERALDO BUTT Hospitalization Reason for admission: DKA, T2DM, Hypernatremia, htrombocytopenia Condition: Stable Pertinent studies: cxr - unrmarkable Procedures: none Hospital course: Patient is a 53 year old gentleman who has a history of hypertension who was seen in my office about 6 weeks ago for atopic dermatitis. Was commenced on prednisone after topical steroids was not effective. Today patient presents with progressive worsening polyuria, polydipsia, polyphagia, weight loss and fatigue. Patient had seen me in the office in about 3 months ago with pressure was 130. He was advised to return for further evaluation. However he did not return because of high insurance deductible. His present symptoms started about 2 weeks ago and progressively got worse. She came into my office today. In the office blood pressure was found to be extremely high inguinal direct in the glucometer. He was fatigued. Denies any fever or chills. No chest pain or shortness of breath or PND. No abdomen pain, nausea or vomiting. Patient was therefore admitted to the emergency department. The patient was found to be 1084. BUN was 58 and creatinine was 2.3. Venous pH was 7.9. Potassium and phosphorus levels where normal. Bicarbonate was normal at 24. Anion gap was unremarkable. Patient was commenced on normal saline and insulin drips. Inpatient admission was requested. continue with insulin drip until blood sugar was less than 200. Had hypernatremia for which pt was commenced on D5W. Hypernatremia improved from 168 to 145. Fatigue resolved. He is being discharged to f/u with me, his PCP in 3-5 days for further evaluation for his thrombocytopenia which is more likely form alcohol ingestion. continue with oral antibiaetic meds. Disposition: DC-01 TO HOME OR SELFCARE Time spent for discharge: 40 min - Discharge Diagnoses (1) Hypernatremia Status: Acute (2) Diabetes mellitus Status: Acute (3) Acute renal failure Status: Acute (4) DKA (diabetic ketoacidoses) Status: Acute (5) Thrombocytopenia Status: Acute Core Measure Documentation - Palliative Care Palliative Care/ Comfort Measures: Not Applicable - Core Measures Any of the following diagnoses?: none Exam - Physical Exam Narrative exam: Constitutional: Well-nourished well-developed. In no distress Head: Normocephalic atraumatic Eyes: Pupils are equal round and reactive to light Nose: No enlarged turbinates, no septal deviation. Mouth: Dry mucous membranes. Neck: Supple no thyromegaly. No bruit. No JVD Heart: Regular rate and rhythm, S1-S2 normal. No rubs murmurs or gallop Lungs: Clear to auscultation bilaterally. no rales or rhonchi Abdomen: Soft, nontender. Bowel sound are present. Extremities: No edema, no cyanosis, no clubbing. Neuro: Alert oriented Oriented x3. No focal sensory or motor deficit. Skin: rashes on the skin and left hand. no hyperpigmented spots Musculoskeletal system: No joint pain or swelling Hematological: No petechia or subcutanous hemorrhages. Immunological: No multiple septic spots on the skin Lymphatic: No generalized lymphadenopathy Psychiatry: Euthymic. Calm. - Constitutional Vitals: Temp Pulse Resp BP Pulse Ox 99.5 F 76 18 92/49 97 06/21/18 05:57 06/21/18 10:42 06/21/18 05:57 06/21/18 10:42 06/21/18 05:57 Plan Activity: advance as tolerated Weight Bearing Status: Weight Bear as Tolerated Diet: diabetic Follow up with: GERALDO BUTT MD [Primary Care Provider] - 10 Days JOSE MANUEL QUAN MD [Staff Physician] - 3 Days Prescriptions: RX: Atenolol [Tenormin] 50 mg PO DAILY #30 tablet RX: AtorvaSTATin [Lipitor] 80 mg PO QHS #30 tablet RX: clonazePAM [KlonoPIN] 0.5 mg PO BID #20 tablet RX: Insulin Glargine [Lantus VIAL] 30 units SUB-Q DAILY #300 units Lispro Insulin [Humalog] 100 unit SQ AC #1 vial RX: metFORMIN [Glucophage] 500 mg PO BID #60 tablet
[2018-06-21 16:19] VITALS: BP 87/59
== END 2018-06-21 15:15 | disposition home or self-care (01) | DRG 638 ==
LOC: ED 15:24 → CC1 20:52 → 3A 06-20 12:44
PROVIDERS: ADMIT Family Medicine; ATTEND Family Medicine
DX: E11.10 Type 2 diabetes mellitus with ketoacidosis without coma (principal); N17.9 Acute kidney failure, unspecified; E87.0 Hyperosmolality and hypernatremia; I10 Essential (primary) hypertension; F10.10 Alcohol abuse, uncomplicated; Y90.0 Blood alcohol level of less than 20 mg/100 ml; F17.200 Nicotine dependence, unspecified, uncomplicated; D69.6 Thrombocytopenia, unspecified; E83.41 Hypermagnesemia; E78.00 Pure hypercholesterolemia, unspecified; H54.62 Unqualified visual loss, left eye, normal vision right eye; Z83.3 Family history of diabetes mellitus; Z90.5 Acquired absence of kidney
CPT/HCPCS: 36415; 71045; 80048; 80053; 80061; 80076; 81001; 82805; 82962; 83036; 83735; 84100; 84484; 85025; 93005; 93010; G0378; A9270-GY; J1650; J1815; J3480; J7030; J7070